=== PATIENT | male | born 1960 | race Caucasian/White ===

== ENCOUNTER 2018-03-03 06:36 | Emergency (ER) | payer OTHER ==
[~2018-03-03] VITALS: Ht 162.6 cm; Wt 81.8 kg
[~2018-03-03 06:36] MED LIST: ALBU18HF2 INH; BENZ-16 PO; LEVA15HF4 IH
[2018-03-03 06:44] VITALS: BP 127/75
[2018-03-03] MEDS ORDERED: albuterol 2.5 MG/3 ML nebule NEB ONE (07:15)
[2018-03-03] MEDS ORDERED: AZIT250T PO (07:36)
== END 2018-03-03 07:45 | disposition home or self-care (01) ==
LOC: ER 06:36
DX: J09.X2 Influenza due to identified novel influenza A virus with other respiratory manifestations (principal); J20.9 Acute bronchitis, unspecified; Z88.6 Allergy status to analgesic agent
CPT/HCPCS: 71045; 94640; 94760; 99283

== ENCOUNTER 2018-07-17 18:50 | Emergency (ER) | payer MEDICAID ==
[~2018-07-17] VITALS: Ht 162.6 cm; Wt 75.0 kg
[~2018-07-17 18:50] MED LIST changes: +AZIT250T PO
[2018-07-17] MEDS ORDERED: ondansetron 4mg rapidly disintigrating tab PO ONE (19:20)
[2018-07-17] MEDS ORDERED: rabies vaccine (PCEC)/PF 2.5 unit kit IM ONE (19:20)
[2018-07-17] MEDS ORDERED: bacitracin 15gm ointment TP ONE (19:20)
[2018-07-17] MEDS ORDERED: TETanus/Pertussis (Acell)/Diphther VAC/PF (Tdap-Adult) 0.5ml syringe IM ONE (19:20)
[2018-07-17] MEDS ORDERED: acetaminophen 325mg tablet PO ONE (19:20)
[2018-07-17] MEDS ORDERED: amox tr/potassium clavulanate 875/125mg TAB PO ONE (19:20)
[2018-07-17] MEDS ORDERED: AMOX-422 PO (19:20)
[2018-07-17] MEDS ORDERED: rabies immune globulin/PF 150 unit/ml inj IM ONE (19:30)
--- NOTE | 2018-07-17 19:56 | NUR ---
LEFT ARM BITES CLEANED WITH NS 7 PEROIDE, 500ML, RABIES VACCINE INJECTED INTO WOUND, BACTRACIN, NON-ADHESIVE APPLIED AND WOUND WRAPPED WITH GAUZE. PT EDUCATED TO KEEP WOUND DRY FIRST 24 HRS, USING PLASTIC WRAP OR PLASTIC BAG OVER DRESSING WHILE SHORWERING. PT VERBALIZED UNDERSTANDING. S/S WARRATING A RETURN ED VISIT DISCUSSED. PT VERBALIZED UNDERSTANDING.
[2018-07-17 20:09] VITALS: BP 164/86
== END 2018-07-17 20:15 | disposition home or self-care (01) ==
LOC: ER 18:52
DX: S51.812A Laceration without foreign body of left forearm, initial encounter (principal); Z88.5 Allergy status to narcotic agent; Z79.899 Other long term (current) drug therapy; Z59.0 Homelessness; W54.0XXA Bitten by dog, initial encounter; Y93.89 Activity, other specified; Y92.89 Other specified places as the place of occurrence of the external cause; Y99.8 Other external cause status
CPT/HCPCS: 90375; 90471; 90472; 90675; 90715; 96372; 99284

== ENCOUNTER 2022-10-09 10:10 | Emergency (ER) | payer MEDICAID ==
[~2022-10-09] VITALS: Ht 162.6 cm; Wt 78.6 kg
[2022-10-09 11:35] VITALS: BP 118/83; PULSE 83; RESP 18; TEMP 98.1; O2SAT 96
[2022-10-09] MEDS ORDERED: LIDOcaine 1% W/epiNEPHrine 1:100,000 20ml vial IJ ONE (13:20)
[2022-10-09] MEDS ORDERED: SULF1TAB49 PO (14:58)
== END 2022-10-09 15:16 | disposition home or self-care (01) ==
LOC: ER 10:10
DX: L02.413 Cutaneous abscess of right upper limb (principal); Z59.00 Homelessness unspecified; Z88.8 Allergy status to other drugs, medicaments and biological substances; Z79.2 Long term (current) use of antibiotics; Z79.899 Other long term (current) drug therapy
CPT/HCPCS: 10060; 99283; J7030; A6449

== ENCOUNTER 2024-05-25 14:59 | Emergency (ER) | payer MEDICAID ==
[~2024-05-25] VITALS: Ht 162.6 cm; Wt 76.9 kg
[~2024-05-25 14:59] MED LIST changes: -AZIT250T PO; +BUDE10.26 INH
[2024-05-25 15:24] VITALS: BP 137/84; PULSE 98; RESP 16; O2SAT 99
[2024-05-25 17:56] VITALS: TEMP 98.6
== END 2024-05-25 17:58 | disposition home or self-care (01) ==
LOC: ER 15:00
DX: B34.9 Viral infection, unspecified (principal); F17.210 Nicotine dependence, cigarettes, uncomplicated; Z59.00 Homelessness unspecified; Z88.5 Allergy status to narcotic agent; Z79.899 Other long term (current) drug therapy; Z20.822 Contact with and (suspected) exposure to COVID-19
CPT/HCPCS: 36415; 87502; 87503; 87811; 99283

== ENCOUNTER 2024-07-21 12:37 | Emergency (ER) | payer MEDICAID ==
[~2024-07-21] VITALS: Ht 162.6 cm; Wt 80.9 kg
[2024-07-21 12:40] VITALS: BP 131/75; PULSE 101; RESP 18; TEMP 98; O2SAT 96
[2024-07-21] MEDS ORDERED: CEPH-585 PO (16:06)
--- NOTE | 2024-07-21 16:06 | Physician Documentation ---
History of Present Illness ~ Chief Complaint: Abscess Stated Complaint: SPIDER BITE Time Seen by MD: 16:01 OK to notify your PCP?: Yes Primary Medical Doctor: DR. JARQUIN Source: patient Mode of Arrival: POV, Ambulatory Exam Limitations: no limitations HPI 63-year-old male with abscess to left index finger, noticed 24 hours ago. He says that he is staying in a motel and thinks it may have been a spider bite. Has not opened and started draining. There is some redness and edema traveling up into left hand. Medications taken for symptoms prior to arrival Tetanus Within 5 Years: Yes (2022) Medication Reconciliation Allergies: Coded Allergies: morphine (Verified Allergy, Intermediate, CHEST PRESSURE, 07/21/24) Scheduled Albuterol Sulfate (Ventolin Hfa), 2 PUFFS INH Q4HPRN Benzonatate* (Tessalon Perles*), 1 CAP PO Q8H PRN FOR COUGH Budesonide/Formoterol Fumarate (Budesonide-Formoterol 160-4.5), 2 PUFFS INH Q12H Cephalexin*Monohydrate* (Keflex*), 1 CAP PO Q8H Levalbuterol Tartrate* (Xopenex Inhaler*), 2 PUFF IH Q4H Past Medical History Past Medical History: No Pertinent History Past Surgical History: no surgical history Alcohol Use: None Drug Use: none Lives In: Homeless Occupation: employed Review of Systems All Other Systems at this time: Reviewed and Negative Physical Exam Vital Signs: RN Vital Signs have been reviewed: Yes, Temperature: 98.0, Source: Temporal, Heart Rate: 101, Respiratory Rate: 18, BP: 131/75, Pulse Oximetry: 96, Weight: 80.910 Oxygen Flow Rate: 0 Pulse Oximetry Reflects: adequate oxygenation Physical Exam General: Alert, no apparent distress. HEENT: PERRL, EOMI, no injection, moist mucous membranes. Neck: Full range of motion. Respiratory: Lungs clear, no respiratory distress. Chest: No accessory muscle use. Cardiovascular: Regular rate and rhythm, no murmurs. Gastrointestinal: Soft, nontender, nondistended. Bowels sounds present. Extremities: Normal range of motion, no deformity. Neurologic: Oriented x4. Psychiatric: Normal mood and affect. Skin: Erythema and edema in left hand and blister-like abscess to left index finger approximately 1.5cm x 1.5cm circular. Procedures I & D Procedure : Site: Left index finger Anesthesia: none Blade Size: 18 gauge needle Prep/Supplies: betadine prep Incision: pus drained, blood drained, seroma drained Tolerated Procedure Well?: yes, no complications Progress Results/Orders Reviewed/noted all lab results: Yes Results/Orders Completed Orders - STEPHANIE MARS DIGITAL TECH Cephalexin Capsule (Keflex Capsule) (07/21/24 16:20) Medications Received in ER Medications (Trade) Dose Ordered Sig/Ephraim Route PRN Reason Start Time Stop Time Status Last Admin Dose Admin (Keflex capsule) 500 mg ONCE ONCE PO 07/21/24 16:20 07/21/24 16:21 DC 07/21/24 16:21 500 MG Vital Signs 07/21/24 12:40 Temp 98.0 Pulse 101 Resp 18 B/P (MAP) 131/75 Pulse Ox 96 O2 Flow Rate 0 Medical Decision Making Findings 63-year-old male with abscess to left index finger past 24 hours, possibly a spider bite. I performed an incision and drainage and was able to get a good amount out to flatten the blister-like abscess. First dose of Keflex given here in the department and prescription sent to pharmacy for more. He should follow up with his primary care provider in the next 3 days and return back here for any new or worsening symptoms. He has been educated to finish his course of antibiotics even if he is feeling better. He should keep wound covered, clean and dry for the next 24 hours to allow further draining. Differential Dx:Considerations: Include: Erysipelas, Gas gangrene, Osteromyelitis, Septicemia Departure Disposition: 01 HOME / SELF CARE / HOMELESS Impression: Primary Impression: Abscess Condition: Stable Discharge Instructions: Incision and Drainage, Abscess, Care After Additional Instructions: Please take all antibiotics as prescribed and finish the course. Follow up with your primary care provider in the next 3 days and return back here for any new or worsening symptoms. Referrals: NO PRIMARY CARE PROVIDER (PCP) Prescriptions Cephalexin*Monohydrate* (Keflex*) 500 Mg Capsule 1 CAP PO Q8H for 10 Days, #30 CAP Prov: STEPHANIE MARS DIGITAL TECH 07/21/24 Education Educated: Patient Educated regarding: diagnosis, treatment, prognosis, need for follow up Signature Scribe Signature: . Attestation: Scribed for Stephanie Mars by Stephanie Ayon NP . 07/21/24 16:51 STEPHANIE MARS [facility] Jul 21, 2024 16:06
[2024-07-21] MEDS: cephalexin 250mg capsule PO ONE (16:21)
== END 2024-07-21 16:32 | disposition home or self-care (01) ==
LOC: ER 12:38
DX: L02.512 Cutaneous abscess of left hand (principal); Z88.5 Allergy status to narcotic agent; Z79.899 Other long term (current) drug therapy; Z59.00 Homelessness unspecified
CPT/HCPCS: 10060; 26010; 99283; A6449